=== PATIENT | female | born 1945 | race Caucasian/White ===

== ENCOUNTER 2018-04-11 09:13 | Inpatient (IN) | payer OTHER ==
[2018-04-08 09:08] VITALS: BMI 32.3
[2018-04-11] MEDS ORDERED: ONDANSETRON 4 MG/2 ML VIAL IVPUSH PRN ×2 (10:14→14:51)
[2018-04-11] MEDS ORDERED: DESFLURANE GAS 240 ML BOTTLE IH ONE (10:22)
[2018-04-11] MEDS ORDERED: SEVOFLURANE 250 ML BTL ONE (10:23)
[2018-04-11] MEDS ORDERED: ceFAZolin SODIUM 1 GM VIAL IVPB ONE (12:10)
[2018-04-11] MEDS ORDERED: PROPOFOL 20 ML ONE ×3 (13:44)
[2018-04-11] MEDS ORDERED: ONDANSETRON 4 MG/2 ML VIAL IVPB PRN (14:03)
[2018-04-11] MEDS ORDERED: ACETAMINOPHEN 500 MG TABLET (FP) PO PRN (14:07)
[2018-04-11] MEDS ORDERED: oxyCODONE HCL 5 MG TABLET PO PRN ×2 (14:54→14:55)
[2018-04-11] MEDS: LACTATED RINGERS SOLUTION 1,000 ML IV SCH (16:15)
[2018-04-11] MEDS ORDERED: ceFAZolin SODIUM 1 GM VIAL ONE (18:11)
[2018-04-11] MEDS ORDERED: DEXTROSE 5%-WATER - 50 ML IVPB ONE (18:11)
[2018-04-11] MEDS: CEFAZOLIN 1 GM in DEXTROSE 5%-WATER - 50 ML IVPB SCH (18:22)
[2018-04-12] MEDS ORDERED: ceFAZolin SODIUM 1 GM VIAL ONE ×2 (02:12→09:20)
[2018-04-12] MEDS ORDERED: DEXTROSE 5%-WATER - 50 ML IVPB ONE ×2 (02:12→09:20)
[2018-04-12] MEDS: CEFAZOLIN 1 GM in DEXTROSE 5%-WATER - 50 ML IVPB SCH ×2 (02:28→10:22)
[2018-04-12] MEDS: LACTATED RINGERS SOLUTION 1,000 ML IV SCH (10:23)
[2018-04-12] MEDS ORDERED: oxyCODONE HCL 5 MG TABLET PO PRN ×2 (14:53→14:54)
[2018-04-12] MEDS ORDERED: ACETAMINOPHEN 325 MG TABLET (FP) PO PRN ×2 (14:53→14:54)
[2018-04-12 14:54] VITALS: BP 137/66; PULSE 69; TEMP 98.4
--- NOTE | 2018-04-12 14:57 | OP ---
DATE OF OPERATION: 04/11/2018 PREOPERATIVE DIAGNOSIS: Left breast cancer. POSTOPERATIVE DIAGNOSIS: Left breast cancer. PROCEDURE: Left breast lumpectomy and axillary lymph node dissection. SURGEON: Simran Molina MD ANESTHESIA: General. ESTIMATED BLOOD LOSS: 100 mL DRAINS: YANDEL x1. COMPLICATIONS: None. This was a sterile procedure. INDICATION FOR PROCEDURE: Patient presented with a palpable left axillary mass that needle biopsy showed a metastatic adenocarcinoma to the lymph node. She also had left breast imaging that noted a tiny nodule in the inner left breast which a core biopsy invasive carcinoma. My recommendation was a lumpectomy and axillary node dissection. The procedure was discussed with her, all the questions answered. PROCEDURE IN DETAIL: Patient was brought to [facility], taken into the operating room. After induction of general anesthesia and IV antibiotics, the left breast and axilla were prepped and draped in the usual sterile fashion. Once the induction of general anesthesia and IV antibiotics, an intraoperative ultrasound was performed to localize the lesion in the left 9 o'clock location with a [place] wire by me. An incision was made in the left axilla, carried down to the clavipectoral fascia to do a completion lymph node dissection. Care was taken to preserve the long thoracic and thoracodorsal neurovascular bundles. The entire fat pad in this area was removed and sent to Pathology as left axillary contents. Once this was completed, hemostasis was controlled with hemoclips and electrocautery. Next, the left breast lumpectomy was performed through a radial incision in the inner left breast, and a wire was used as a guide to get down to the area of interest. This was excised en bloc, tagged with a long stitch lateral, short stitch superior. Grossly, I felt I was close superiorly, anteriorly, and inferiorly. Therefore, I took a new superior margin with stitch at the old margin as well as new inferior margin with a stitch at the old margin. Then, I took a new anterior-superior margin with a stitch at the old margin, as well as new anterior-inferior margin with a stitch at the old margin. These specimens were all sent to Pathology for permanent section. Hemostasis was assured with electrocautery. The parenchyma approximated with interrupted 2-0 Vicryl, skin approximated with interrupted 2-0 Vicryl running and 4-0 Prolene. Through a separate stab wound, a 10-mm YANDEL drain was placed into the left axilla and secured to the skin with a 3-0 nylon stitch. The axillary incision was closed in a routine fashion of interrupted 3-0 Vicryl and running 4-0 Prolene. A sterile dressing with Tegaderm, 4 x 4's applied, as well as a Surgi-Bra. She tolerated the procedure well, was extubated on the operating room table, taken to Recovery in good condition. Giselle [id number]
--- NOTE | 2018-04-14 15:58 | PATH ---
Surgical Pathology Report Patient Name: HAYLEY GUSTAFSON [facility]. Rec. #: [id number] /Age/Gender: 1945 (Age: 72) / F Account: [id number] Location: [facility] MED/SURG Taken: 04/11/2018 Received: 04/12/2018 Reported: 04/14/2018 Physicians: Simran Molina M.D. Specimen(s) Received A: LEFT AXILLARY CONTENTS B: LEFT LUMPECTOMY C: LEFT BREAST NEW SUPERIOR MARGIN D: LEFT BREAST NEW INFERIOR MARGIN E: LEFT BREAST NEW ANTERIOR SUPERIOR MARGIN F: LEFT BREAST NEW ANTERIOR INFERIOR MARGIN Clinical History Left breast cancer with palpable left axillary adenopathy Final Diagnosis A. AXILLARY CONTENTS, LEFT, DISSECTION: METASTATIC CARCINOMA INVOLVING ONE OF TWENTY-THREE LYMPH NODES (12/14). THE INVOLVED LYMPH NODE IS ALMOST ENTIRELY REPLACED BY METASTATIC CARCINOMA (3.8 CM, GROSS MEASUREMENT; MACROMETASTASIS). NO EXTRANODAL EXTENSION IS IDENTIFIED. B. BREAST, LEFT, LUMPECTOMY: INVASIVE DUCTAL CARCINOMA, POORLY DIFFERENTIATED (TUBULE SCORE: 3/3; NUCLEAR GRADE: 3/3; MITOTIC SCORE: 2/3; TOTAL SCORE: 8/9, KERRI GRADE 3) WITH PROMINENT ASSOCIATED LYMPHOPLASMOCYTIC INFILTRATE (> 60% TUMOR INFILTRATING LYMPHOCYTES (TILs)). INVASIVE CARCINOMA MEASURES 1.3 CM IN GREATEST DIMENSION MICROSCOPICALLY. DUCTAL CARCINOMA IN SITU (DCIS), SOLID AND MICROPAPILLARY TYPE, HIGH NUCLEAR GRADE WITH MODERATE NECROSIS AND ASSOCIATED CALCIFICATIONS, IS PRESENT ADMIXED WITH INVASIVE CARCINOMA AND AWAY FROM IT. SURGICAL MARGINS ARE UNINVOLVED BY INVASIVE CARCINOMA; INVASIVE CARCINOMA IS AT 2 MM FROM THE CLOSEST (LATERAL) MARGIN. DCIS IS CLOSE TO (< 1 MM) THE MEDIAL, INFERIOR AND SUPERIOR MARGINS. SEE SPECIMEN C-F FOR FINAL MARGINS. NO LYMPHOVASCULAR INVASION IS IDENTIFIED. PRIOR BIOPSY CHANGES ARE PRESENT. PATHOLOGIC STAGE (pTNM):pT1c pN1a. SEE ALSO INVASIVE CARCINOMA CASE SUMMARY BELOW. C. BREAST, LEFT, NEW SUPERIOR MARGIN, EXCISION: BENIGN BREAST TISSUE. D. BREAST, LEFT, NEW INFERIOR MARGIN, EXCISION: BENIGN BREAST TISSUE. E. BREAST, LEFT, NEW ANTERIOR SUPERIOR MARGIN, EXCISION: BENIGN BREAST TISSUE. F. BREAST, LEFT, NEW ANTERIOR INFERIOR MARGIN, EXCISION: BENIGN BREAST TISSUE. Comments Breast Invasive Carcinoma: Surgical Pathology Case Summary (Based on AJCC TNM 8 th edition) Procedure _X_ Excision (less than total mastectomy) Specimen Laterality _X_ Left Tumor Size _X_ Greatest dimension of largest invasive focus >1 mm (millimeters): 13 mm Histologic Type _X_ Invasive carcinoma of no special type (ductal, not otherwise specified) Histologic Grade ([place] Histologic Score) Glandular (Acinar)/Tubular Differentiation _X_ Score 3 (<10% of tumor area forming glandular/tubular structures) Nuclear Pleomorphism _X_ Score 3 Mitotic Rate _X_ Score 2 Overall Grade _X_ Grade 3 (scores of 8 or 9) Tumor Focality _X_ Single focus of invasive carcinoma Ductal Carcinoma In Situ (DCIS) _X_ DCIS is present in specimen _X_ Positive for EIC Margins Invasive Carcinoma Margins _X_ Uninvolved by invasive carcinoma Distance from closest margin (millimeters): 2 mm Closest margin: lateral margin in lumpectomy specimen B. DCIS Margins _X_ Uninvolved by DCIS Distance from closest margin (millimeters): < 1 mm Closest margin(s): medial, inferior & superior margins in lumpectomy specimen B. Final margins (C-F) are negative for DCIS. Regional Lymph Nodes Number of Lymph Nodes with Macrometastases (>2 mm): 1 Number of Lymph Nodes with Micrometastases (>0.2 mm to 2 mm and/or >200 cells): 0 Number of Lymph Nodes with Isolated Tumor Cells (=0.2 mm and =200 cells): 0 Size of Largest Metastatic Deposit (millimeters): 38 mm Extranodal Extension: _X_ Not identified Number of Lymph Nodes Examined: 23 Number of [place] Nodes Examined :0 Treatment Effect _X_ No known presurgical therapy Lymphovascular Invasion _X_ Not identified Pathologic Stage Classification (pTNM, AJCC 8th Edition) Primary Tumor (Invasive Carcinoma) (pT) _X_ pT1c: Tumor >10 mm but =20 mm in greatest dimension Regional Lymph Nodes (pN) Category (pN) _X_ pN1a: Metastases in 1 to 3 axillary lymph nodes, at least 1 metastasis larger than 2.0 mm Biomarker Studies Results of ER and SD studies performed on or prior biopsy ([id number]) at [facility] are as follows: ER (clone [id number] mouse monoclonal antibody by [employer]): 100 % nuclear staining with strong intensity (Positive). SD (clone16 mouse monoclonal antibody by [employer]): ~70 % nuclear staining with moderate intensity (Positive). Results of Her2 (IHC) & Ki-67 studies performed on prior biopsy ( ) at [place], [place] ([id number]) are as follows: Her2 IHC (EP3 from [employer], formerly known as [id number], using [employer] Polymer Refine detection kit): 1+ (Negative). Ki67: ~25% (Intermediate proliferative index). Electronically Signed Kamille Mcgraw M.D. Gross Description A. Received in formalin labeled "left axillary contents," is an 8.5 x 8.0 x 4.0 cm aggregate of yellow, lobulated adipose tissue. Sectioning reveals abundant lymph nodes ranging from 0.3-3.8 cm in greatest dimension. The lymph nodes are submitted in 19 cassettes as follows: 1-4-three whole lymph nodes each; 5-13-one bisected lymph node each; 14-15-one whole bisected lymph node; 52-85-[id number] sections of largest lymph node (one full-face bisected section in cassettes 16/17 and 18/19). B. Received in formalin, labeled "left lumpectomy," is a 6.0 x 3.7 x 2.6 cm. santana-yellow, irregular, portion of fibroadipose tissue with a needle localization wire present. There is a short suture marking the superior aspect and a long suture marking the lateral aspect, per the surgeon. There is no skin present. The specimen is inked as follows: Superior blue; inferior green; anterior and lateral red; medial yellow; deep black. The specimen is serially sectioned from anterior to deep. Sectioning reveals a 1.0 x 0.8 x 0.8 cm santana, firm mass at 0.3 cm from the lateral margin, 0.5 cm from the medial margin and 0.6 cm from the inferior margin. The remaining margins appear widely clear of the mass. The remaining breast parenchyma displays predominantly yellow, lobulated adipose tissue. Psychologist Developmental sections are submitted in 7 cassettes as follows: 1-full-face section of mass (with inferior, lateral and medial margins); 6-4-hrcjytoulf sections of mass (each with inferior, lateral and medial margins); 2-4-sywtlqfo margin; 6-anterior margin; 7-deep margin. Total formalin fixation time: Between 24-34 hours C. Received in formalin labeled "left breast new superior margin," is a 4.3 x 2.7 x 1.3 cm portion of fibroadipose tissue with a suture marking the old margin, per the surgeon. The new margin is inked blue and the specimen is serially sectioned. The specimen is entirely and sequentially submitted in 7 cassettes. D. Received in formalin labeled "left breast new inferior margin," is a 3.7 x 2.8 x 1.0 cm portion of fibroadipose tissue with a suture marking the old margin, per the surgeon. The new margin is inked blue and the specimen is serially sectioned. The specimen is entirely and sequentially submitted in 6 cassettes. E. Received in formalin labeled "left breast new anterior superior margin," is a 4.5 x 2.8 x 0.8 cm portion of fibroadipose tissue with a suture marking the old margin, per the surgeon. The new margin is inked blue and the specimen is serially sectioned. The specimen is entirely and sequentially submitted in 5 cassettes. F. Received in formalin labeled "left breast new anterior inferior margin," is a 3.0 x 2.0 x 0.9 cm portion of fibroadipose tissue with a suture marking the old margin, per the surgeon. The new margin is inked blue and the specimen is serially sectioned. The specimen is entirely and sequentially submitted in 4 cassettes. 04/12/[address] [facility]04/12/2018
== END 2018-04-12 15:02 | disposition home or self-care (01) | DRG 582 ==
LOC: JSAMEDAYSX 09:13 → EDSTATUS 11:00 → J8W 17:42
PROVIDERS: ADMIT Surgery; ATTEND Surgery
PROC: 0HTU0ZZ Resection of Left Breast, Open Approach (ICD-10-PCS; principal; 2018-04-11 11:00)
PROC: 07T60ZZ Resection of Left Axillary Lymphatic, Open Approach (ICD-10-PCS; 2018-04-11 11:00)
DX: C50.812 Malignant neoplasm of overlapping sites of left female breast (principal); C77.3 Secondary and unspecified malignant neoplasm of axilla and upper limb lymph nodes; I10 Essential (primary) hypertension; E66.9 Obesity, unspecified; Z68.32 Body mass index [BMI] 32.0-32.9, adult
CPT/HCPCS: 88307-TC; 94760

== ENCOUNTER 2021-05-07 04:45 | Day surgery (SDC) | payer OTHER ==
[2021-05-06 13:22] VITALS: BMI 32.3
[2021-05-07 09:37] LABS: BASO % 0.6 % (0-2.0); EOS % 2.5 % (0-4.5); HEMATOCRIT 36.7 % (32.4-45.2); HEMOGLOBIN 12.5 GM/dL (10.7-15.3); LYMPH % 50.6 % (8-40); MCH 31.8 pg (25.7-33.7); MCHC 34.1 g/dl (32.0-36.0); MEAN CELL VOLUME 93.3 fl (80-96); MONO % 6.4 % (3.8-10.2); NEUT % 39.9 % (42.8-82.8); PLATELET COUNT 258 10^3/uL (134-434); RBC 3.93 M/mm3 (3.60-5.2); RDW 13.3 % (11.6-15.6)
[2021-05-07 10:05] LABS: INR 1.03 (0.83-1.09); PROTHROMBIN TIME (PATIENT) 12.4 SEC (9.7-13.0)
[2021-05-07] MEDS ORDERED: MIDAZOLAM HCL 2 MG/2 ML SINGLE DOSE VIAL IVPB ONE ×2 (13:12→13:25)
[2021-05-07] MEDS ORDERED: SODIUM CHLORIDE 500 ML IV ONE (14:00)
[2021-05-07] MEDS ORDERED: oxyCODONE HCL 5 MG TABLET ONE (14:39)
[2021-05-07] MEDS ORDERED: ACETAMINOPHEN 325 MG TABLET (FP) ONE (14:39)
[2021-05-07] MEDS ORDERED: oxyCODONE HCL 5 MG TABLET PO ONE (14:47)
[2021-05-07] MEDS ORDERED: ACETAMINOPHEN 325 MG TABLET (FP) PO ONE (14:48)
[2021-05-07 17:55] VITALS: BP 150/84; PULSE 65; TEMP 97.6
== END 2021-05-07 17:35 | disposition home or self-care (01) ==
LOC: JRADIR 04:45
PROVIDERS: ATTEND Internal Medicine Gastroenterology
PROC: 0FB13ZX Excision of Right Lobe Liver, Percutaneous Approach, Diagnostic (ICD-10-PCS; principal; 2021-05-07)
DX: K75.81 Nonalcoholic steatohepatitis (NASH) (principal)
CPT/HCPCS: 36415; 47000; 76942-TC; 85025; 85610; 87899; 88307-TC; 88313-TC